=== PATIENT | female | born 2005 | race Caucasian/White ===

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

== ENCOUNTER → 2023-08-18 10:31 | Outpatient (CLI) | payer OTHER, MEDICAID, SELFPAY | PROVIDERS: PCP Registered Nurse Diabetes Educator; Visit Provider Nurse Practitioner Family | DX: J02.9 Acute pharyngitis, unspecified (principal) | CPT/HCPCS: 87070 ==

== ENCOUNTER 2023-08-20 14:14 | Emergency (ER) | payer OTHER, MEDICAID, SELFPAY ==
[2023-08-20] VITALS (9 sets, daily range): BP systolic 111–142; BP diastolic 55–91; PULSE 96–154; RESP 14–31; TEMP 36.6; O2SAT 91–100; BMI 20.7
--- NOTE | 2023-08-20 14:43 | DI.RAD.S_ITS ---
PROCEDURE: XR CHEST 1V INDICATIONS: chest pain TECHNIQUE: One view of the chest was acquired. COMPARISON: None. FINDINGS: Surgical changes and devices: None. Lungs and pleura: Lungs are clear. No pleural effusions or pneumothorax. Mediastinum: Mediastinal contours appear normal. Heart size is normal. Bones and chest wall: No suspicious bony lesions. Overlying soft tissues appear unremarkable. IMPRESSION: No acute cardiopulmonary abnormality is seen. Approved by: Mu Keys M.D. on 08/20/2023 at 14:59
--- NOTE | 2023-08-20 15:04 | ED_ITS ---
HPI - Arrhythmia/Palpitations General Chief Complaint: Arrhythmia/Palpitations Stated Complaint: heart beating fast Time Seen by Provider: 08/20/23 14:47 Source: patient Mode of arrival: Ambulatory History of Present Illness HPI narrative: 18-year-old patient presents for shortness of breath, palpitations, anxiety. Patient has had intermittent symptoms for the last several weeks, however over the last 2-3 days it seems to have worsened and is causing her significant distress. Multiple life stressors. Denies wanting to harm herself or anyone else. Related Data Home Medications Medication Instructions Recorded Confirmed loratadine 10 mg tablet (Claritin) 10 mg PO DAILY 08/20/23 08/20/23 omeprazole 20 mg capsule,delayed 20 mg PO DAILY 08/20/23 08/20/23 release Previous Rx's Medication Instructions Recorded fluoxetine 10 mg capsule (Prozac) 10 mg PO DAILY #30 caps 08/20/23 hydroxyzine HCl 25 mg tablet 25 mg PO TID PRN anxiety #60 tabs 08/20/23 Allergies Allergy/AdvReac Type Severity Reaction Status Date / Time No Known Drug Allergies Allergy Verified 08/20/23 14:28 Review of Systems Review of Systems Narrative: Negative except as noted above Patient History Medical History Gastritis Depression Anxiety Nausea Social History Smoking Status: Never smoker Smoking Status: Never smoker alcohol intake frequency: other Substance Use Type: does not use Exam Initial Vital Signs Initial Vital Signs: Vital Signs Temperature 98 F 08/20/23 14:22 Pulse Rate 154 H 08/20/23 14:22 Respiratory Rate 18 08/20/23 14:22 Blood Pressure 142/91 H 08/20/23 14:22 Pulse Oximetry 97 08/20/23 14:22 Oxygen Delivery Method Room Air 08/20/23 14:22 Const: Awake, alert, anxious Cardiac: Tachycardia, regular rhythm RESP: unlabored, clear bilaterally, no wheezing GI: Atraumatic, soft, nontender, nondistended, no rebound, no guarding MSK: Atraumatic, full range of motion, pulses equal Skin: Warm, Dry, intact, no rashes Neuro: AO x3, CN II-XII grossly intact, moves all extremities Psych: Anxious affect, mood normal, not suicidal, not homicidal Course Orders Ordered: Discontinued Medications Hydroxyzine HCl (Hydroxyzine Hcl 25 Mg Tablet) 50 mg PO NOW ONE Stop: 08/20/23 15:12 Last Admin: 08/20/23 15:20 Dose: 50 mg Documented By: EDA Vital Signs Vital signs: Vital Signs - 8 hr 08/20/23 14:22 08/20/23 14:43 08/20/23 14:50 Temperature 98 F Pulse Rate 154 H 125 H Respiratory Rate 18 Blood Pressure 142/91 H Pulse Oximetry 97 91 Oxygen Delivery Method Room Air 08/20/23 14:51 08/20/23 14:51 08/20/23 15:00 Temperature Pulse Rate 130 H 139 H Respiratory Rate 27 H Blood Pressure 115/71 Pulse Oximetry 97 100 Oxygen Delivery Method Room Air 08/20/23 15:30 08/20/23 15:30 08/20/23 16:00 Temperature Pulse Rate 110 H Respiratory Rate 25 H Blood Pressure 118/55 L 123/72 Pulse Oximetry 100 Oxygen Delivery Method 08/20/23 16:00 08/20/23 16:30 08/20/23 16:30 Temperature Pulse Rate 120 H 103 H Respiratory Rate 14 Blood Pressure 125/69 Pulse Oximetry 99 99 Oxygen Delivery Method Room Air MDM - Arrhythmia/Palpitations Lab Data 08/20/23 16:11 08/20/23 16:11 Labs: Lab Results 08/20/23 Range/Units 16:11 WBC 9.9 (4.5-11.0) X10^3/uL RBC 4.77 (4.0-5.2) X10^6/uL Hgb 14.3 (12.0-16.0) g/dL Hct 40.6 (36-46) % MCV 85.1 (80-100) fL MCH 29.9 (26-34) PG MCHC 35.1 (30-36) % RDW 13.2 (11.6-14.8) % Plt Count 279 (150-400) X10^3/uL Neut % (Auto) 69.1 (50-75) % Lymph % (Auto) 22.8 L (25-40) % [place] % (Auto) 7.6 (3-14) % Eos % (Auto) 0.3 L (2-4) % Baso % (Auto) 0.2 (0-2) % Neut # (Auto) 6900 (3980-2808) /uL Lymph # (Auto) 2300 (8974-1836) /uL [place] # (Auto) 800 (0-900) /uL Eos # (Auto) 0 (0-450) /uL Baso # (Auto) 0 (0-100) /uL PT 13.0 H (9.4-12.5) SECONDS INR 1.1 (0.9-1.3) APTT 40 H (25.1-36.5) SECONDS D-Dimer 253 (<500) ng/ml Sodium 138 (137-145) mmol/L Potassium 3.4 (3.4-5.1) mmol/L Chloride 105 (98-107) mmol/L Carbon Dioxide 10 L (22-32) mmol/L BUN 12 (7-17) mg/dL Creatinine 0.62 (0.52-1.04) mg/dL Estimated GFR > 60 (>60) mL/min BUN/Creatinine Ratio 19.4 (6-22) Glucose 60 L (70-100) mg/dL Calcium 9.6 (8.4-10.2) mg/dL Magnesium 1.8 (1.6-2.3) mg/dL Total Bilirubin 0.9 (0.2-1.3) mg/dL AST 30 (14-36) IU/L ALT 16 (<35) IU/L Alkaline Phosphatase 68 (38-126) U/L Total Creatine Kinase 58 (30-135) U/L Troponin I < 0.012 (0.01-0.034) ng/mL Total Protein 8.7 H (6.3-8.2) g/dL Albumin 5.0 (3.5-5.0) g/dL Globulin 3.7 (1.7-4.1) g/dL Albumin/Globulin Ratio 1.4 (1.0-2.8) Lipase 39 (23-300) U/L ECG Data Interpretation: Normal sinus rhythm, tachycardia, normal NH, no ST T wave changes MDM Narrative Medical decision making narrative: Well-appearing patient with anxiety and palpitations. Noted to be very tachycardic on presentation. When patient was left in the room by herself heart rate dropped back down to within normal limits, however whenever staff into the room her heart rate jumps back up to 120 bpm. Patient notes multiple stressors, was previously on hydroxyzine and Prozac, and she feels like that was very helpful to her. Laboratory work is reviewed, unremarkable. D-dimer negative. Chest x-ray unremarkable. Patient reports feeling improved after receiving hydroxyzine for anxiety. Asked if patient would like to restart her previous medications since they seem to work for her, patient states that she would like to retry taking Prozac and hydroxyzine. Medication sent to pharmacy of choice. Patient was recommended to follow up with psychotherapy. She states that she will follow up with her primary care physician for this. ED return precautions discussed at bedside. Patient expressed understanding of the plan and is in agreement at this time. All questions answered at the time of discharge. Discharge Plan Departure Patient Disposition: Home Clinical Impression: Anxiety, Palpitations Instructions: DI for Anxiety -- Adult Prescriptions: New hydroxyzine HCl 25 mg tablet 25 mg PO TID PRN (Reason: anxiety) Qty: 60 0RF fluoxetine [Prozac] 10 mg capsule 10 mg PO DAILY Qty: 30 0RF No Action omeprazole [Prilosec] 20 mg Capsule,Delayed Release(Dr/Ec) 20 mg PO DAILY loratadine [Claritin] 10 mg Tablet 10 mg PO DAILY Referrals: Abraham Carlson ARNP [Primary Care Provider] - Stand Alone Forms: Patient Portal/API
[2023-08-20] MEDS: hydrOXYzine HCL 25 MG TABLET 50 MG PO (15:20)
--- NOTE | 2023-08-20 16:10 | PC.NURSE ---
Pt reports worsening anxiety the past 14 days which is usually not this bad. Pt has multiple life stressors and is extremely anxious of the BP cuff and especially IV insertion. Pt tolerated PO medications before IV (see MAR) and talker with pt's mother on the phone to assist with calming patient. Pt reports nausea/vomiting a few days ago and chest tightness rated at 5/10 the past week. Pt currently denies having chest tightness at this time. Pt resting in bed, call light in reach. Pt denies SOB.
[2023-08-20 16:21] LABS: Add Manual Diff / Slide Review NO; Basophils Absolute Auto 0 /uL (0-100); Basophils Percent Auto 0.2 % (0-2); Eosinophils Absolute Auto 0 /uL (0-450); Eosinophils Percent Auto 0.3 % (2-4); Hematocrit 40.6 % (36-46); Hemoglobin 14.3 g/dL (12.0-16.0); Lymphocytes Absolute Auto 2300 /uL (1100-4500); Lymphocytes Percent Auto 22.8 % (25-40); Mean Corpuscular HGB Conc 35.1 % (30-36); Mean Corpuscular Hemoglobin 29.9 PG (26-34); Mean Corpuscular Volume 85.1 fL (80-100); Monocytes Absolute Auto 800 /uL (0-900); Monocytes Percent Auto 7.6 % (3-14); Neutrophils Absolute Auto 6900 /uL (1500-7000); Neutrophils Percent Auto 69.1 % (50-75); Platelet Count 279 X10^3/uL (150-400); Red Blood Cell Count 4.77 X10^6/uL (4.0-5.2); Red Cell Distribution Width 13.2 % (11.6-14.8); White Blood Cell Count 9.9 X10^3/uL (4.5-11.0)
[2023-08-20 16:30] LABS: INR 1.1 (0.9-1.3)
[2023-08-20 16:32] LABS: D Dimer 253 ng/ml (<500)
[2023-08-20 16:33] LABS: Alanine Aminotransferase 16 IU/L (<35); Albumin Globulin Ratio 1.4 (1.0-2.8); Alkaline Phosphatase 68 U/L (38-126); Aspartate Aminotransferase 30 IU/L (14-36); BUN Creatinine Ratio 19.4 (6-22); Bilirubin Total 0.9 mg/dL (0.2-1.3); Blood Urea Nitrogen 12 mg/dL (7-17); Calcium 9.6 mg/dL (8.4-10.2); Carbon Dioxide 10 mmol/L (22-32); Chloride 105 mmol/L (98-107); Creatine Kinase 58 U/L (30-135); Estimated Glomerular Filt Rate > 60 mL/min (>60); Globulin 3.7 g/dL (1.7-4.1); Glucose 60 mg/dL (70-100); HEMOLYSIS < 15 (0-50); Lipase 39 U/L (23-300); Magnesium 1.8 mg/dL (1.6-2.3); PTT Partial Thromboplastin Tim 40 SECONDS (25.1-36.5); Potassium 3.4 mmol/L (3.4-5.1); Sodium 138 mmol/L (137-145); Total Protein 8.7 g/dL (6.3-8.2)
[2023-08-20 16:45] LABS: Troponin I < 0.012 ng/mL (0.01-0.034)
== END 2023-08-20 17:19 | disposition home or self-care (01) ==
PROVIDERS: Emergency Provider Emergency Medicine; PCP Registered Nurse Diabetes Educator
DX: R00.2 Palpitations (principal); F41.9 Anxiety disorder, unspecified; R07.9 Chest pain, unspecified
CPT/HCPCS: 36415; 71045; 80053; 82550; 83690; 83735; 84484; 85025; 85379; 85610; 85730; 93005; 93010; 99284; A9270